=== PATIENT | female | born 1970 | race Two or more races ===

== ENCOUNTER 2016-12-09 17:56 | Emergency (ER) | payer OTHER ==
[2016-12-09] MEDS ORDERED: IOPAMIDOL 370 (76%) 100 ML VIAL IV ONE (17:57)
[2016-12-09 18:47] LABS: URINE BILIRUBIN NEGATIVE (NEGATIVE); URINE BLOOD NEGATIVE (NEGATIVE); URINE GLUCOSE (UA) NEGATIVE (NEGATIVE); URINE LEUKOCYTE ESTERASE NEGATIVE (NEGATIVE); URINE NITRITE NEGATIVE (NEGATIVE); URINE PROTEIN NEGATIVE (NEGATIVE); URINE UROBILINOGEN NORMAL (0-1 mg/dl)
[2016-12-09 18:48] LABS: HCG,QUALITATIVE URINE NEGATIVE
[2016-12-09 18:49] LABS: URINE APPEARANCE CLEAR; URINE COLOR YELLOW
[2016-12-09 19:29] LABS: ABSOLUTE NEUTROPHIL COUNT 4.1 K/mm3 (1.8-7.7); BASO % 0.4 % (0.2-1.0); EOS # 0.1 (0.0-0.5); EOS % 1.6 % (0.9-2.9); HEMATOCRIT 38.9 % (37.0-47.0); HEMOGLOBIN 12.9 gm/l (12.0-16.0); IMM NEUT% 0.2 % (0-1); LYMPH # 3.5 (1.0-4.8); LYMPH % 42.8 % (15-45); MEAN CELL VOLUME 78.7 fl (81.0-99.0); MEAN CORPUSCULAR HEMOGLOBIN 26.1 pg (27.0-31.0); MEAN CORPUSCULAR HGB CONC 33.2 g/dl (33.0-37.0); MEAN PLATELET VOLUME 9.8 fl (7.4-10.4); MONO # 0.4 (0.0-0.8); MONO % 5.2 % (4-12); NEUT % 49.8 % (43-75); PLATELET COUNT 306 K/mm3 (130-400); RED CELL DISTRIBUTION WIDTH 17.2 % (11.5-14.5)
[2016-12-09 19:33] LABS: LIPASE 36 U/L (11-82)
--- NOTE | 2016-12-09 20:01 | CT ---
CT ABDOMEN AND PELVIS WITH CONTRAST HISTORY: Left lower quadrant pain. TECHNIQUE: Following intravenous administration of 100cc of Isovue-370, contiguous axial images were acquired from the lung bases to the ischial tuberosities. Oral contrast was not administered. COMPARISON:None. FINDINGS: LUNG BASES: Minimal airspace abnormality of the right middle lobe and left lower lobe, early pneumonia is possible. LIVER: No focal lesion. SPLEEN: No focal lesion. PANCREAS: No focal lesion. ADRENAL GLANDS: No mass effect. KIDNEYS: No focal lesion. No collecting system dilatation. GALLBLADDER: Present. BOWEL: Moderate fecal loading. Limited assessment of the distal colon due to decompression. No abnormal small bowel dilatation. Nonspecific enhancement of multiple small bowel loops. APPENDIX: Normal appearance. PELVIC ORGANS: Asymmetric prominence of the left ovary, poorly separable from adjacent bowel, approximately 5.2 x 2.9 x 3.2 cm in size. FREE FLUID: No gross free fluid identified. ABDOMINOPELVIC LYMPH NODES: No abnormally enlarged lymph nodes identified. ABDOMINAL AORTA: Normal caliber. OSSEOUS STRUCTURES: No grossly destructive lesions. IMPRESSION: 1. Relative prominence of the left ovary, up to 5.2 cm in size, perhaps exaggerated by adjacent bowel. Consider sonographic correlation in the setting of left lower quadrant pain. No features of sigmoid colonic diverticulitis. 2. No evidence of small bowel dilatation or appendicitis. Enhancement of small bowel loops may indicate enteritis. No free fluid. 3. Minor foci of airspace disease at the left lower and right middle lobes, minimal changes of pneumonia are possible. Results were electronically transmitted to the electronic medical record at 12/09/2016 at 1957 hours.
--- NOTE | 2016-12-10 08:24 | US ---
Exam: Pelvic ultrasound COMPARISON: CT 12/09/2016 and ultrasound 09/22/2016 INDICATION: Left lower quadrant pain for 4 days. FINDINGS: Transabdominal and transvaginal pelvic ultrasound was obtained. Uterus measures 9.7 x 4.4 x 6.3 cm and is heterogeneous in echotexture. There is a focal myometrial mass compatible with a leiomyoma within the anterior uterine body measuring up to 2.7 cm. Endometrium within normal limits measuring up to 6 cm in bilayer thickness on the transvaginal exam. Left ovary measures 3.6 x 2.0 x 2.9 cm and is within normal limits, containing a few follicles measuring up to 1.4 cm. Blood flow is present within the left ovary. Patient is status post oophorectomy; there is no mass within the right adnexa. There is no significant free fluid in cul-de-sac. IMPRESSION: 1. Normal left ovary. 2. Solitary fibroid. Preliminary report transmitted to the emergency department from [facility] at 2132 hours on 12/09/2016.
== END 2016-12-09 22:06 | disposition home or self-care (01) ==
LOC: ED 17:56
DX: D25.9 Leiomyoma of uterus, unspecified (principal)
CPT/HCPCS: 83690; 81025; 85025; 82550; 81003; 74177; 76856; 76830; 99284 ×2; Q9967